=== PATIENT | female | born 1950 | race American Indian/Alaskan Native ===

== ENCOUNTER 2018-04-07 07:08 | Outpatient (CLI) | payer MEDICARE ==
--- NOTE | 2018-04-07 09:59 | Cat Scan Report ---
CT CHEST WITHOUT CONTRAST: HISTORY: Solitary pulmonary nodule on lung. COMPARISON: None at this facility. TECHNIQUE: Helical CT in 1.25mm intervals without IV contrast. Sagittal and coronal reformatted images. FINDINGS: Thyroid gland: Normal. Tracheobronchial tree: Normal. Esophagus: Normal. Heart: Normal. Pericardium: Normal. Mediastinum: There are a few partially calcified precarinal lymph nodes which are normal size. No adenopathy. Lung Acevedo: No parenchymal lung disease, infiltrate or suspicious nodule/mass. An 8mm calcified granulomas noted along the major fissure in the mid left lung. No soft tissue nodule. Pleural Spaces: Normal. Musculoskeletal: Mild scoliosis is noted. No fracture or suspicious bony lesion. IMPRESSION: Chronic granulomatous disease. No suspicious pulmonary nodule.
== END 2018-04-07 07:09 | disposition home or self-care (01) ==
LOC: CT 07:08
PROVIDERS: ATTEND Physician Assistant
DX: R91.1 Solitary pulmonary nodule (principal); R91.8 Other nonspecific abnormal finding of lung field; D71 Functional disorders of polymorphonuclear neutrophils
CPT/HCPCS: 71250